=== PATIENT | female | born 1935 | race Caucasian/White ===

== ENCOUNTER 2024-02-07 08:00 | Emergency (ER) | payer OTHER, SELFPAY ==
[2024-02-07 08:03] VITALS: BP 171/82
[2024-02-07 08:33] VITALS: BMI 22.2
[2024-02-07 08:36] VITALS: BP 126/64
[2024-02-07 09:00] VITALS: BP 117/64
--- NOTE | 2024-02-07 09:32 | ED.GENMED ---
History of Present Illness
General
Chief Complaint: Cold/Flu/URI Symptoms
Source: patient and records
Time Seen by Provider: 02/07/24 09:17
Travel History
Have you had any contact with someone who has COVID-19?: No
Do you have any symptoms of coronavirus? Fever > 100 degrees, chills, cough, shortness of breath, sore throat, loss of taste or smell, muscle aches, or headache?: Yes
Symptoms:: congestion
History of Present Illness
History of Present Illness:
88-year-old female with past medical history of giant cell arteritis, Sjogren's syndrome/lupus-like syndrome presenting to the emergency department for evaluation at the request of her primary care provider after patient has been dealing with about
1-1/2 weeks of sinus pressure/headache, chills and generally feeling unwell. Patient did a home COVID/flu test which was negative so went to the primary care provider on Thursday who attempted an EKG and said that the EKG was different from the one
at her [facility] a month ago and recommended she go to the emergency. Patient decided to go home and see if symptoms would resolve but upon awakening today still had a mild headache so decided to come to the ER for the further testing. Patient
states that her primary care provider wanted lab work done. She notes that the [facility] wanted to get an echocardiogram done as an outpatient which patient has yet to schedule. Presently she is denying any chest pain, shortness of breath,
palpitations, diaphoresis, exertional dyspnea, orthopnea, cough, fevers or infectious symptoms or any other concerns. She did not take anything for her headache today as she did not want to potentially cause any problems with the workup here. She
is requesting a extra strength Tylenol however. Patient notes that she has had multiple imaging studies done for her frequent headaches with her last CAT scan being within the last 6 months or so.
Past History
Past History
ED Past Medical History: Arrthythmia (atrial fibrillation), Hypothyroidism, Other (giant cell arteritis, bilateral biopsy-proven July 2021, chronic hyponatremia, anemia, orthostatic hypotension) and Other (vitiligo, alopecia, irritable bowel
syndrome, plantar fasciitis, osteoporosis, labyrinthitis, secondary hyperparathyroidism, insomnia); Negative Renal failure (CKD stage IIIa)
ED Past Surgical History: Gynecological (hysterectomy 1986) and Other (bilateral temporal artery biopsy 2020)
Social History
Tobacco: Non-smoker
Alcohol: None
Drug: None
Personal:
Living: alone
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
Family History
Family History: Negative Diabetes or Hypertension
Review of Systems
Review of Systems
All Other Systems: ROS reviewed and negative except as documented in HPI and ROS
Phy Exam
Physical Exam
Physical Exam:
GENERAL: Alert , in no apparent distress
EYE: conjunctiva clear
NECK: Supple, no significant adenopathy.
ENT: o/p clr, mmm.
CARDIAC: Regular rate and rhythm, no murmur
LUNGS: Clear breath sounds bilaterally, no acute respiratory distress, no wheezes/rales/rhonchi
NEUROLOGICAL: Alert and oriented
SKIN: Warm and dry, skin intact.
MUSCULOSKELETAL: well perfused. no edema
PSYCH: Normal and appropriate interaction.
Scores
Heart Failure Risk
Heart Failure Risk Score: Not Applicable
Heart Score for Chest Pain Patients
STEMI patient?: Not applicable
Withdrawal Assessment of Alcohol
Withdrawal Assessment Completed?: Not applicable
Course
Orders/Labs/Results
Orders:
Orders
02/07/24
Electrocardiogram (*1) Stat
Reason for Study: Chest Pain
Comment: DONE NO ORDER ENTERED
02/07/24 09:35
Acetaminophen [Tylenol] 500 mg PO NOW STA
02/07/24 10:10
Complete Blood Count/With Diff Urgent
Comprehensive Metabolic Panel Urgent
Troponin I Urgent
Abnormal Lab Results
02/07/24
10:10
WBC 3.4 L 10^3/uL
(4.8-10.8)
RBC 3.31 L 10^6/uL
(4.20-5.40)
Hgb 11.4 L g/dL
(12.0-16.0)
Hct 31.6 L %
(37.0-47.0)
MCH 34.4 H pg
(27.0-31.0)
Absolute Lymphs (auto) 0.6 L 10^3/uL
(1.2-3.4)
Lymphocytes % 18.7 L %
(20.5-51.1)
Monocytes % 14.6 H %
(1.7-9.3)
Eosinophils % 6.4 H %
(0-6)
Sodium 130 L mmol/L
(135-145)
BUN 21 H mg/dl
(7-17)
02/07/24 10:10
02/07/24 10:10
Vital Signs
Initial and Last Documented VS:
Initial Vital Signs
Temp Pulse Resp BP Pulse Ox
97.6 F 99 20 171/82 98
02/07/24 08:03 02/07/24 08:03 02/07/24 08:03 02/07/24 08:03 02/07/24 08:03
Last Documented Vital Signs
Temp Pulse Resp BP Pulse Ox
97.6 F 65 15 109/94 98
02/07/24 08:03 02/07/24 10:45 02/07/24 10:45 02/07/24 10:00 02/07/24 09:45
MDM/Problems Addressed
Differential Diagnosis Includes:
Viral syndrome, sinusitis, exacerbation of patient's known chronic headaches/lupus-like syndrome, given bilateral nature of symptoms I have less suspicion for giant cell arteritis, atypical ACS presentation
MDM/Problems Addressed:
88-year-old female presenting the emergency department quest of primary care provider for lab work given reported abnormal EKG done in office. Patient does not report any ACS like symptoms. She has undergone extensive outpatient workup with
multiple different specialist for various symptoms with no specific etiology was found. Has a questionable diagnosis of Sjogren syndrome. Patient states primary care wanted her to have blood work done. Will check basic labs and troponin. Tylenol
500 mg p.o. ordered for patient's mild headache. As long as workup is unremarkable anticipate discharge home with continued outpatient follow-up.
Chronic conditions affecting care: Other (Sjogren syndrome)
*Pulse Oximetry
Patient hypoxic: no
*EKG
Interpreted by ED Provider?: Yes
Comparison EKG: no changes
Heart Rate: 87
Rate: normal
Rhythm: sinus
Ischemia: non-specific ST changes
*Critical Care Note
Total Time (30-74mins, 75-104mins- exclusive of procedures): Not Applicable
Data Reviewed
Review of Other/Old Records Reveals: Labs, Records and Radiology Studies
Source: patient and records
Patient Management
Escalation/DeEscalation of care consider admission/obs:
Patient's labs are baseline and without any acute abnormalities. EKG is unchanged from previous. Stable for discharge home and continued outpatient follow-up.
ED Attending Note
-
Portions of this chart may have been created with voice recognition software.� Occasional wrong word or��sound alike� substitutions may have occurred due to the inherent limitations of voice recognition software.
Discharge Plan
Departure
Patient Disposition: Home (Routine Discharge)
Date of Disposition: 02/07/24
Time of Disposition: 10:53
Patient with high blood pressure during this ER visit?: Yes
Discharge Problem:
Headache
Instructions: Headache, Adult (DC)
Prescriptions:
No Action
levothyroxine [Synthroid] 100 MCG tablet
100 mcg PO DAILY
Eliquis 2.5 mg Tablet
2.5 mg PO BID Qty: 60 0RF
Vitamin C 100 mg Tablet
100 mg PO DAILY
sodium chloride 1 gram tablet
1,000 mg PO BID Qty: 60 0RF
lorazepam 0.5 mg tablet
0.25 mg PO HS
calcium carbonate-vitamin D3 600 mg-10 mcg (400 unit) Capsule
PO DAILY
famotidine [Pepcid] 20 mg Tablet
20 mg PO DAILY
Referrals:
Mirtha Riley MD [Family Provider] -
Interventions
Interventions:
*Risk Screen - Suicide Last Done: 02/07/24 08:33
*General Assessment Last Done: 02/07/24 08:33
*Neglect/Abuse Screening Last Done: 02/07/24 08:33
ED- Fall Risk Assessment Last Done: 02/07/24 08:33
*ED COVID-19 Vaccine History Last Done: 02/07/24 08:33
*Nursing Disposition Last Done: 02/07/24 11:13
ED- Pulmonary Assessment Last Done: 02/07/24 08:33
Discharge Date and Time
Discharge Date/Time: 02/07/24 11:13
[2024-02-07] MEDS: TYLENOL 500 MG PO (09:58)
[2024-02-07 10:00] VITALS: BP 109/94
[2024-02-07 10:16] LABS: % Basophils 1.2 % (0-2); % Eosinophils 6.4 % (0-6); % Lymphocytes 18.7 % (20.5-51.1); % Monocytes 14.6 % (1.7-9.3); % Neutrophils 59.1 % (42.2-75.2); Absolute Eosinophils 0.2 10^3/uL (0-0.7); Absolute Lymphocytes 0.6 10^3/uL (1.2-3.4); Absolute Monocytes 0.5 10^3/uL (0.1-0.6); Hematocrit 31.6 % (37.0-47.0); Hemoglobin 11.4 g/dL (12.0-16.0); Mean Corp Hgb Conc. 36.1 g/dL (33.0-37.0); Mean Corpuscular Hgb 34.4 pg (27.0-31.0); Mean Corpuscular Volume 95.5 fL (81.0-99.0); Mean Platelet Volume 8.6 fL (7.4-10.4); Nucleated Red Blood Cells % 0 %; Platelet Count 185 10^3/uL (130-400); Red Blood Cell Count 3.31 10^6/uL (4.20-5.40); Red Cell Dist. Width 12.2 % (11.5-14.5); White Blood Cell Count 3.4 10^3/uL (4.8-10.8)
[2024-02-07 10:43] LABS: Troponin I < 0.012 ng/ml
[2024-02-07 10:48] LABS: ALT (SGPT) 22 U/L (0-35); AST (SGOT) 33 U/L (14-36); Albumin 4.3 g/dl (3.5-5.0); Alkaline Phosphatase 74 U/L (38-126); Blood Urea Nitrogen 21 mg/dl (7-17); Carbon Dioxide 22 mmol/L (22-30); Chloride 101 mmol/L (98-107); Estimated Creatinine Clearance 35 ml/min; Glucose 70 mg/dl (70-99); Potassium 4.1 mmol/L (3.5-5.1); Sodium 130 mmol/L (135-145); Total Bilirubin 0.5 mg/dl (0.2-1.3); Total Protein 6.9 g/dl (6.3-8.2); eGFR > 60.00
== END 2024-02-07 11:13 | disposition home or self-care (01) ==
LOC: EMR 08:00
PROVIDERS: Physician Assistant Medical; EMERGENCY PHYSICIAN Emergency Medicine; FAMILY PHYSICIAN Emergency Medicine
DX: R51.9 Headache, unspecified (principal); R68.83 Chills (without fever); R03.0 Elevated blood-pressure reading, without diagnosis of hypertension; M35.00 Sjogren syndrome, unspecified
CPT/HCPCS: 99284; 80053; 84484; 85025; 93005

== ENCOUNTER → 2024-03-11 11:57 | Outpatient (REF) | payer OTHER, SELFPAY | LOC: RAD 11:57 | PROVIDERS: ATTENDING PHYSICIAN Internal Medicine; FAMILY PHYSICIAN Emergency Medicine | DX: R06.09 Other forms of dyspnea (principal) | CPT/HCPCS: 71250 ==

== ENCOUNTER → 2024-03-17 13:46 | Outpatient (REF) | payer OTHER, SELFPAY | LOC: RCS 13:46 | PROVIDERS: ATTENDING PHYSICIAN Physician Assistant Medical; FAMILY PHYSICIAN Emergency Medicine | DX: R06.02 Shortness of breath (principal) | CPT/HCPCS: 93306 ==

== ENCOUNTER → 2024-03-24 08:02 | Outpatient (REF) | payer OTHER, SELFPAY | LOC: DHCBC/DCA 08:02 | PROVIDERS: ATTENDING PHYSICIAN Internal Medicine Cardiovascular Disease; FAMILY PHYSICIAN Emergency Medicine | DX: R06.02 Shortness of breath (principal); R94.39 Abnormal result of other cardiovascular function study | CPT/HCPCS: 78452; 93017; A9500; J2785 ==

== ENCOUNTER 2024-07-02 07:43 | Emergency (ER) | payer OTHER, SELFPAY ==
[2024-07-02 07:45] VITALS: BP 135/87
[2024-07-02 08:00] VITALS: BP 132/74
[2024-07-02 08:54] LABS: % Basophils 0.8 % (0-2); % Eosinophils 3.1 % (0-6); % Immature Granulocytes 0.5 % (0-0.5); % Lymphocytes 22.6 % (20.5-51.1); % Monocytes 18.2 % (1.7-9.3); % Neutrophils 54.8 % (42.2-75.2); Absolute Eosinophils 0.1 10^3/uL (0-0.7); Absolute Lymphocytes 0.9 10^3/uL (1.2-3.4); Absolute Monocytes 0.7 10^3/uL (0.1-0.6); Absolute Neutrophils 2.1 10^3/uL (1.4-6.5); Hematocrit 32.5 % (37.0-47.0); Hemoglobin 11.8 g/dL (12.0-16.0); Mean Corp Hgb Conc. 36.3 g/dL (33.0-37.0); Mean Corpuscular Hgb 35.4 pg (27.0-31.0); Mean Corpuscular Volume 97.6 fL (81.0-99.0); Mean Platelet Volume 8.6 fL (7.4-10.4); Nucleated Red Blood Cells % 0 %; Platelet Count 190 10^3/uL (130-400); Red Blood Cell Count 3.33 10^6/uL (4.20-5.40); Red Cell Dist. Width 12.8 % (11.5-14.5); White Blood Cell Count 3.9 10^3/uL (4.8-10.8)
[2024-07-02 09:10] LABS: ALT (SGPT) 17 U/L (0-35); AST (SGOT) 25 U/L (14-36); Albumin 4.3 g/dl (3.5-5.0); Alkaline Phosphatase 42 U/L (38-126); Blood Urea Nitrogen 20 mg/dl (7-17); Calcium 10.1 mg/dl (8.4-10.2); Carbon Dioxide 22 mmol/L (22-30); Chloride 97 mmol/L (98-107); Glucose 87 mg/dl (70-99); Potassium 3.6 mmol/L (3.5-5.1); Sodium 129 mmol/L (135-145); Total Bilirubin 0.5 mg/dl (0.2-1.3); Total Protein 6.5 g/dl (6.3-8.2); eGFR 54.53
[2024-07-02 09:13] LABS: C-Reactive Protein < 5.00 mg/L (0.0-10.00)
--- NOTE | 2024-07-02 09:14 | ED.GENMED ---
History of Present Illness
General
Chief Complaint: Headache
Source: patient and records
Time Seen by Provider: 07/02/24 08:01
History of Present Illness
History of Present Illness:
89-year-old female with past medical history of chronic headache, atrial fibrillation, lupus-like syndrome/Sjogren's syndrome presenting to the ER after she saw her video camera operator yesterday who wanted her to come to the ER yesterday for workup of
potential giant cell arteritis after patient has been noting persistent lightheadedness, headache, fatigue and some right-sided jaw pain that has been ongoing for a few months to over a year. Patient has a history of giant cell arteritis in the
past and has been on long-term corticosteroids which likely caused her adrenal insufficiency (currently not on steroids) and states that due to her continued symptoms that is why she went to the video camera operator yesterday. Patient states her
symptoms are not really any different than her normal today. She denies any fevers or infectious symptoms, trauma, blurred or double vision or any other concerns. Patient has been seen in this ER before for similar related incidences
Past History
Past History
ED Past Medical History: Arrthythmia (atrial fibrillation), Hypothyroidism, Other (giant cell arteritis, bilateral biopsy-proven July 2021, chronic hyponatremia, anemia, orthostatic hypotension) and Other (vitiligo, alopecia, irritable bowel
syndrome, plantar fasciitis, osteoporosis, labyrinthitis, secondary hyperparathyroidism, insomnia); Negative Renal failure (CKD stage IIIa)
ED Past Surgical History: Gynecological (hysterectomy 1986) and Other (bilateral temporal artery biopsy 2020)
Social History
Tobacco: Non-smoker
Alcohol: None
Drug: None
Personal:
Living: alone
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
Family History
Family History: Negative Diabetes or Hypertension
Review of Systems
Review of Systems
All Other Systems: ROS reviewed and negative except as documented in HPI and ROS
Phy Exam
Physical Exam
Physical Exam:
GENERAL: Alert , in no apparent distress
EYE: pupils equal and reactive, 3 mm bilateral, EOMI
NECK: Supple, no meningismus
ENT: o/p clr, mmm.
CARDIAC: Regular rate and rhythm .
LUNGS: Clear breath sounds bilaterally, no acute respiratory distress, no wheezes/rales/rhonchi
NEUROLOGICAL: Alert and oriented, no focal neuro deficits, ambulates with steady gait, no ataxia, no dysmetria
SKIN: Warm and dry, skin intact.
MUSCULOSKELETAL: well perfused.
PSYCH: Normal and appropriate interaction.
Scores
Heart Failure Risk
Heart Failure Risk Score: Not Applicable
Heart Score for Chest Pain Patients
STEMI patient?: Not applicable
Withdrawal Assessment of Alcohol
Withdrawal Assessment Completed?: Not applicable
Course
Orders/Labs/Results
Orders:
Orders
07/02/24 08:29
CRP [C-Reactive Protein] Urgent
Complete Blood Count/With Diff Urgent
Comprehensive Metabolic Panel Urgent
ESR [Erythrocyte Sed Rate] Urgent
Abnormal Lab Results
07/02/24
08:29
WBC 3.9 L 10^3/uL
(4.8-10.8)
RBC 3.33 L 10^6/uL
(4.20-5.40)
Hgb 11.8 L g/dL
(12.0-16.0)
Hct 32.5 L %
(37.0-47.0)
MCH 35.4 H pg
(27.0-31.0)
Absolute Lymphs (auto) 0.9 L 10^3/uL
(1.2-3.4)
Absolute Monos (auto) 0.7 H 10^3/uL
(0.1-0.6)
Monocytes % 18.2 H %
(1.7-9.3)
Sodium 129 L mmol/L
(135-145)
Chloride 97 L mmol/L
(98-107)
BUN 20 H mg/dl
(7-17)
07/02/24 08:29
07/02/24 08:29
Vital Signs
Initial and Last Documented VS:
Initial Vital Signs
Temp Pulse Resp BP Pulse Ox
97.8 F 108 16 135/87 100
07/02/24 07:45 07/02/24 07:45 07/02/24 07:45 07/02/24 07:45 07/02/24 07:45
Last Documented Vital Signs
Temp Pulse Resp BP Pulse Ox
98.4 F 90 18 138/76 98
07/02/24 09:50 07/02/24 09:50 07/02/24 09:50 07/02/24 09:50 07/02/24 09:50
MDM/Problems Addressed
Differential Diagnosis Includes:
Tension headache, migraine headache, giant cell arteritis considered however thought to be less likely given duration of symptoms and chronicity of symptoms, hyponatremia given patient's history
MDM/Problems Addressed:
89-year-old female presenting the emergency department for evaluation at request of her video camera operator for evaluation of possible giant cell arteritis. Patient does have a history of giant cell arteritis in 2020 status post biopsy. Patient was
unsure as to which side she had the giant cell arteritis on or a biopsy performed on. She notes no new symptoms over the last few weeks or months so it makes this diagnosis a little less likely given I would suspect some form of visual disturbance
associated if this were truly giant cell arteritis and the duration of time patient has had the symptoms. Will check labs and following results will discuss with vascular surgery. Disposition pending.
Chronic conditions affecting care: Neurological disorder (chronic headache) and Other (lupus like syndrome)
*Pulse Oximetry
Patient hypoxic: no
*Critical Care Note
Total Time (30-74mins, 75-104mins- exclusive of procedures): Not Applicable
Data Reviewed
Review of Other/Old Records Reveals: Records and Operative Reports
Source: patient and records
Patient Management
Escalation/DeEscalation of care consider admission/obs:
Patient's inflammatory markers are unremarkable making the likelihood of giant cell arteritis very unlikely. I gave the patient information for vascular surgery and advised she can contact them on Thursday for a follow-up visit. She also notes she
has a neurology visit coming up within the next few weeks. Patient is aware of return precautions to the ER but otherwise stable for discharge home.
ED Attending Note
-
Portions of this chart may have been created with voice recognition software.� Occasional wrong word or��sound alike� substitutions may have occurred due to the inherent limitations of voice recognition software.
Discharge Plan
Departure
Patient Disposition: Home (Routine Discharge)
Date of Disposition: 07/02/24
Time of Disposition: 09:27
Patient with high blood pressure during this ER visit?: No
Discharge Problem:
Headache
Instructions: Headache, Adult (DC)
Prescriptions:
No Action
levothyroxine [Synthroid] 100 MCG tablet
100 mcg PO DAILY
Eliquis 2.5 mg Tablet
2.5 mg PO BID Qty: 60 0RF
Vitamin C 100 mg Tablet
100 mg PO DAILY
sodium chloride 1 gram tablet
1,000 mg PO BID Qty: 60 0RF
lorazepam 0.5 mg tablet
0.25 mg PO HS
calcium carbonate-vitamin D3 600 mg-10 mcg (400 unit) Capsule
PO DAILY
famotidine [Pepcid] 20 mg Tablet
20 mg PO DAILY
Referrals:
Mirtha Riley MD [Family Provider] -
Forest Daniel III, MD [Active] - (Vascular Surgery)
Interventions
Interventions:
*Risk Screen - Suicide Last Done: 07/02/24 07:45
*General Assessment Last Done: 07/02/24 07:45
*Neglect/Abuse Screening Last Done: 07/02/24 07:45
ED- Fall Risk Assessment Last Done: 07/02/24 08:00
*Nursing Disposition Last Done: 07/02/24 09:50
ED- Neurological Assessment Last Done: 07/02/24 08:00
Discharge Date and Time
Discharge Date/Time: 07/02/24 09:49
Print Language: SAMMARINESE
[2024-07-02 09:23] LABS: Erythrocyte Sed Rate 11 mm/hour (0-20)
[2024-07-02 09:50] VITALS: BP 138/76
== END 2024-07-02 09:49 | disposition home or self-care (01) ==
LOC: EMR 07:43
PROVIDERS: Physician Assistant Medical; EMERGENCY PHYSICIAN Emergency Medicine; FAMILY PHYSICIAN Emergency Medicine
DX: R51.9 Headache, unspecified (principal); I48.91 Unspecified atrial fibrillation; M35.00 Sjogren syndrome, unspecified; M31.6 Other giant cell arteritis; K58.9 Irritable bowel syndrome, unspecified; E03.9 Hypothyroidism, unspecified; E27.40 Unspecified adrenocortical insufficiency; M81.0 Age-related osteoporosis without current pathological fracture; N25.81 Secondary hyperparathyroidism of renal origin; Z90.710 Acquired absence of both cervix and uterus
CPT/HCPCS: 99283; 80053; 85025; 85652; 86140

== ENCOUNTER → 2024-09-21 12:28 | Outpatient (REF) | payer OTHER, SELFPAY ==
[2024-09-21 13:00] LABS: % Basophils 0.2 % (0-2); % Eosinophils 0.4 % (0-6); % Immature Granulocytes 0.2 % (0-0.5); % Lymphocytes 13.6 % (20.5-51.1); % Monocytes 4.2 % (1.7-9.3); % Neutrophils 81.4 % (42.2-75.2); Absolute Lymphocytes 0.6 10^3/uL (1.2-3.4); Absolute Monocytes 0.2 10^3/uL (0.1-0.6); Absolute Neutrophils 3.6 10^3/uL (1.4-6.5); Hematocrit 33.9 % (37.0-47.0); Hemoglobin 11.7 g/dL (12.0-16.0); Mean Corp Hgb Conc. 34.5 g/dL (33.0-37.0); Mean Corpuscular Hgb 35.2 pg (27.0-31.0); Mean Corpuscular Volume 102.1 fL (81.0-99.0); Mean Platelet Volume 8.5 fL (7.4-10.4); Platelet Count 223 10^3/uL (130-400); Red Blood Cell Count 3.32 10^6/uL (4.20-5.40); Red Cell Dist. Width 12.6 % (11.5-14.5); White Blood Cell Count 4.5 10^3/uL (4.8-10.8)
[2024-09-21 13:47] LABS: Nucleated Red Blood Cells % 0 %; Reticulocyte Count 1.8 % (0.4-2.8)
[2024-09-21 13:59] LABS: Erythrocyte Sed Rate 18 mm/hour (0-20)
[2024-09-21 14:11] LABS: ALT (SGPT) 23 U/L (0-35); AST (SGOT) 26 U/L (14-36); Albumin 4.4 g/dl (3.5-5.0); Alkaline Phosphatase 42 U/L (38-126); Blood Urea Nitrogen 28 mg/dl (7-17); Carbon Dioxide 21 mmol/L (22-30); Chloride 104 mmol/L (98-107); Glucose 108 mg/dl (70-99); Iron 83 ug/dl (37-170); LDH 185 U/L (120-246); Potassium 4.6 mmol/L (3.5-5.1); Sodium 137 mmol/L (135-145); Total Bilirubin 0.2 mg/dl (0.2-1.3); Total Protein 6.6 g/dl (6.3-8.2); Uric Acid 5.3 mg/dl (2.5-6.2); eGFR 54.53
[2024-09-21 14:22] LABS: Percent Saturation 27 % (20-50); Total Iron Binding Capacity 300 ug/dl (265-497)
[2024-09-21 15:16] LABS: Folate 14.1 ng/ml (2.76-20); Vitamin B12 807 pg/ml (239-931)
[2024-09-25 23:39] LABS: Albumin 4.06 g/dL (3.75-5.01); Alpha 1 Globulin 0.29 g/dL (0.19-0.46); Alpha 2 Globulin 0.67 g/dL (0.48-1.05); Free Kappa Light Chains,Quant 26.27 mg/L (3.30-19.40); Free Lambda Light Chains,Quant 16.75 mg/L (5.71-26.30); IgA <2 mg/dL (68-408); IgG 663 mg/dL (768-1632); IgM 279 mg/dL (35-263); Immunofixation Electrophoresis IFE Done; Kappa/Lambda Fr Light Ratio 1.57 (0.26-1.65); Total Protein-Electrophoresis 6.4 g/dL (6.3-8.2)
== END ==
LOC: OIDL 12:28
PROVIDERS: ATTENDING PHYSICIAN Internal Medicine Hematology & Oncology
DX: D50.9 Iron deficiency anemia, unspecified (principal); D72.819 Decreased white blood cell count, unspecified; R50.9 Fever, unspecified
CPT/HCPCS: 36415; 80053; 82607; 82728; 82746; 82784; 83521; 83540; 83550; 83615; 84155; 84165; 84550; 85025; 85045; 85652; 86334

== ENCOUNTER 2024-10-14 12:13 | Outpatient (RCR) | payer OTHER, SELFPAY ==
[2024-10-14 12:33] LABS: % Basophils 0.4 % (0-2); % Eosinophils 0.9 % (0-6); % Immature Granulocytes 0.4 % (0-0.5); % Lymphocytes 7.1 % (20.5-51.1); % Monocytes 7.9 % (1.7-9.3); % Neutrophils 83.3 % (42.2-75.2); Absolute Eosinophils 0.1 10^3/uL (0-0.7); Absolute Lymphocytes 0.7 10^3/uL (1.2-3.4); Absolute Monocytes 0.8 10^3/uL (0.1-0.6); Absolute Neutrophils 8.1 10^3/uL (1.4-6.5); Hematocrit 36.5 % (37.0-47.0); Hemoglobin 11.8 g/dL (12.0-16.0); Mean Corp Hgb Conc. 32.3 g/dL (33.0-37.0); Mean Corpuscular Hgb 34.9 pg (27.0-31.0); Nucleated Red Blood Cells % 0 %; Platelet Count 221 10^3/uL (130-400); Red Blood Cell Count 3.38 10^6/uL (4.20-5.40); Red Cell Dist. Width 12.7 % (11.5-14.5); White Blood Cell Count 9.7 10^3/uL (4.8-10.8)
[2024-10-16 15:08] LABS: EBV-EA (D) Ab IgG 5.6 U/mL (0.0-10.9); EBV-NA IgG 24.7 U/mL (0.0-21.9); EBV-VCA IgM Antibodies 30.7 U/mL (0.0-43.9)
[2024-10-16 17:05] LABS: ANA, IgG Reflex to HEp-2 None Detected (None Detected)
[2024-10-17 01:56] LABS: SSA 52 (Ro)(ENA) Ab, IgG 122 AU/mL (0-40); SSA 60 (Ro)(ENA) Ab, IgG 0 AU/mL (0-40); SSB (La)(ENA) Ab, IgG 0 AU/mL (0-40)
== END 2024-10-15 23:59 | disposition home or self-care (01) ==
LOC: OID 12:13
PROVIDERS: ATTENDING PHYSICIAN Internal Medicine Hematology & Oncology
DX: D50.9 Iron deficiency anemia, unspecified (principal); D72.819 Decreased white blood cell count, unspecified; R50.9 Fever, unspecified
CPT/HCPCS: 85025; 86038; 86235; 86663; 86664; 86665

== ENCOUNTER → 2024-11-17 07:52 | Outpatient (REF) | payer OTHER, SELFPAY | LOC: RAD 07:52 | PROVIDERS: ATTENDING PHYSICIAN Internal Medicine Endocrinology, Diabetes & Metabolism; FAMILY PHYSICIAN Emergency Medicine | DX: Z78.0 Asymptomatic menopausal state (principal) | CPT/HCPCS: 77080 ==

== ENCOUNTER → 2025-01-03 08:16 | Outpatient (REF) | payer OTHER, SELFPAY | LOC: RAD 08:16 | PROVIDERS: ATTENDING PHYSICIAN Internal Medicine; PRIMARYCARE PHYSICIAN Emergency Medicine | DX: R74.01 Elevation of levels of liver transaminase levels (principal) | CPT/HCPCS: 76700 ==

== ENCOUNTER 2025-01-10 14:53 | Outpatient (RCR) | payer OTHER, SELFPAY | END 2025-01-10 23:59 | disposition home or self-care (01) | LOC: RPT 14:53 | PROVIDERS: ATTENDING PHYSICIAN Emergency Medicine | DX: R53.81 Other malaise (principal); Z73.6 Limitation of activities due to disability | CPT/HCPCS: 97010; 97110; 97162; 97530 ==

== ENCOUNTER → 2025-01-16 15:49 | Outpatient (REF) | payer OTHER, SELFPAY | LOC: RAD 15:49 | PROVIDERS: ATTENDING PHYSICIAN Physician Assistant Medical; FAMILY PHYSICIAN Emergency Medicine | DX: R06.02 Shortness of breath (principal) | CPT/HCPCS: 71046 ==

== ENCOUNTER 2025-01-26 14:56 | Outpatient (RCR) | payer OTHER, SELFPAY | END 2025-01-26 23:59 | disposition home or self-care (01) | LOC: RPT 14:56 | PROVIDERS: ATTENDING PHYSICIAN Emergency Medicine | DX: R53.81 Other malaise (principal); Z73.6 Limitation of activities due to disability | CPT/HCPCS: 97110 ==

== ENCOUNTER → 2025-02-21 11:57 | Outpatient (REF) | payer OTHER, SELFPAY ==
[2025-02-21 12:50] LABS: Urine Albumin 1+ (Neg - Trace); Urine Bilirubin Negative (Negative); Urine Character Clear (Clear); Urine Color Yellow; Urine Glucose Negative (Negative); Urine Ketone Negative (Negative); Urine Leukocyte Negative (Negative); Urine Nitrite Negative (Negative); Urine Occult Blood Negative (Negative); Urine Urobilinogen Negative (Neg - 1+); Urine pH 6.5 (5.0-9.0)
[2025-02-21 12:51] LABS: Urine Red Blood Cell 0-2 /HPF (0-2); Urine Squamous Cell 0-2 /LPF (Few); Urine White Cell 0-2 /HPF (0-5)
[2025-02-21 12:52] LABS: % Basophils 0.3 % (0-2); % Eosinophils 0.2 % (0-6); % Immature Granulocytes 0.3 % (0-0.5); % Lymphocytes 9.2 % (20.5-51.1); % Monocytes 1.8 % (1.7-9.3); % Neutrophils 88.2 % (42.2-75.2); Absolute Lymphocytes 0.6 10^3/uL (1.2-3.4); Absolute Monocytes 0.1 10^3/uL (0.1-0.6); Absolute Neutrophils 5.8 10^3/uL (1.4-6.5); Hematocrit 37.2 % (37.0-47.0); Hemoglobin 12.5 g/dL (12.0-16.0); Mean Corp Hgb Conc. 33.6 g/dL (33.0-37.0); Mean Corpuscular Hgb 34.2 pg (27.0-31.0); Mean Corpuscular Volume 101.9 fL (81.0-99.0); Mean Platelet Volume 9.2 fL (7.4-10.4); Nucleated Red Blood Cells % 0 %; Platelet Count 225 10^3/uL (130-400); Red Blood Cell Count 3.65 10^6/uL (4.20-5.40); Red Cell Dist. Width 12.3 % (11.5-14.5); White Blood Cell Count 6.6 10^3/uL (4.8-10.8)
[2025-02-21 13:09] LABS: ALT (SGPT) 24 U/L (0-35); AST (SGOT) 25 U/L (14-36); Albumin 4.3 g/dl (3.5-5.0); Alkaline Phosphatase 54 U/L (38-126); Blood Urea Nitrogen 31 mg/dl (7-17); Calcium 10.2 mg/dl (8.4-10.2); Carbon Dioxide 25 mmol/L (22-30); Chloride 103 mmol/L (98-107); Glucose 175 mg/dl (70-99); Potassium 4.6 mmol/L (3.5-5.1); Sodium 136 mmol/L (135-145); Total Bilirubin 0.4 mg/dl (0.2-1.3); Total Protein 6.9 g/dl (6.3-8.2); eGFR 54.53
[2025-02-21 13:13] LABS: C-Reactive Protein < 5.00 mg/L (0.0-10.00)
[2025-02-21 13:34] LABS: Erythrocyte Sed Rate 6 mm/hour (0-20)
[2025-02-21 14:07] LABS: Protein/creatinine Ratio 0.4; Urine Protein 17 mg/dl
[2025-02-22 23:16] LABS: Complement C3 91 mg/dl (88-165)
[2025-02-23 16:17] LABS: ds-DNA Ab, IgG Reflex To Titer 13 IU (0-24)
== END ==
LOC: REG 11:57
PROVIDERS: ATTENDING PHYSICIAN Internal Medicine; FAMILY PHYSICIAN Emergency Medicine
DX: T50.905A Adverse effect of unspecified drugs, medicaments and biological substances, initial encounter (principal); Z79.899 Other long term (current) drug therapy; M35.9 Systemic involvement of connective tissue, unspecified; M06.4 Inflammatory polyarthropathy; M32.9 Systemic lupus erythematosus, unspecified; Z51.81 Encounter for therapeutic drug level monitoring; L93.2 Other local lupus erythematosus
CPT/HCPCS: 36415; 80053; 81003; 81015; 82570; 84156; 85025; 85652; 86140; 86160; 86225; 86332

== ENCOUNTER 2025-04-13 14:01 | Outpatient (RCR) | payer OTHER, SELFPAY | END 2025-04-13 23:59 | disposition home or self-care (01) | LOC: RPT 14:01 | PROVIDERS: ATTENDING PHYSICIAN Emergency Medicine | DX: R53.81 Other malaise (principal); Z73.6 Limitation of activities due to disability | CPT/HCPCS: 97110; 97112; 97530 ==

== ENCOUNTER → 2025-05-10 15:54 | Outpatient (REF) | payer OTHER, SELFPAY | LOC: RAD 15:54 | PROVIDERS: ATTENDING PHYSICIAN Internal Medicine Critical Care Medicine; FAMILY PHYSICIAN Emergency Medicine | DX: J98.4 Other disorders of lung (principal) | CPT/HCPCS: 71250 ==

== ENCOUNTER 2025-05-11 12:57 | Outpatient (RCR) | payer OTHER, SELFPAY | END 2025-05-11 23:59 | disposition home or self-care (01) | LOC: RPT 12:57 | PROVIDERS: ATTENDING PHYSICIAN Emergency Medicine | DX: R53.81 Other malaise (principal); Z73.6 Limitation of activities due to disability | CPT/HCPCS: 97110; 97530 ==

== ENCOUNTER 2025-06-09 12:44 | Inpatient (IN) | payer OTHER, SELFPAY ==
[2025-06-09] VITALS (10 sets, daily range): BP systolic 98–140; BP diastolic 49–106; BMI 22.2; BMI 22.4
--- NOTE | 2025-06-09 08:20 | ED.GENMED ---
History of Present Illness
<Damien Kimbrough MD, Resident - Last Filed: 06/09/25 11:24>
General
Chief Complaint: Abdominal Symptoms
Source: patient
Exam Limitations: none
Time Seen by Provider: 06/09/25 08:04
Nursing documentation reviewed up to this point in time: agreed with
History of Present Illness
History of Present Illness:
This is a 89-year-old female with history of migraines, A-fib, history of hiatal hernia, hypothyroidism, Sjogren syndrome, adrenal insufficiency presenting in the emergency department with complaints of abdominal discomfort with some nausea. She
reports that her last bowel movement was 2 weeks ago when she became constipated and started to notice discomfort which is progressively getting worse and now she has nausea which prompted her to visit the emergency department. Denies any vomiting,
denies any fevers or chills, denies any chest pain, denies any trouble breathing. Reports that she believes she is unable to pass the gas as well.
Past History
<Damien Kimbrough MD, Resident - Last Filed: 06/09/25 11:24>
Past History
ED Past Medical History: Arrthythmia (atrial fibrillation), Hypothyroidism, Other (giant cell arteritis, bilateral biopsy-proven July 2021, chronic hyponatremia, anemia, orthostatic hypotension) and Other (vitiligo, alopecia, irritable bowel
syndrome, plantar fasciitis, osteoporosis, labyrinthitis, secondary hyperparathyroidism, insomnia); Negative Renal failure (CKD stage IIIa)
ED Past Surgical History: Gynecological (hysterectomy 1986) and Other (bilateral temporal artery biopsy 2020)
Social History
Tobacco: Non-smoker
Alcohol: None
Drug: None
Personal:
Living: alone
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
Family History
Family History: Negative Diabetes or Hypertension
Review of Systems
<Damien Kimbrough MD, Resident - Last Filed: 06/09/25 11:24>
Review of Systems
Allergies reviewed?: Yes
Constitutional: Denies fever or chills
EENT: Denies sore throat
Respiratory: Denies cough
Cardiac: Denies chest pain
ABD/GI: Reports abdominal pain, nausea and constipated; Denies vomiting or diarrhea
: Denies dysuria or frequency
Musculoskeletal: Denies joint pain
Skin: Denies itching
Neurological: Reports dizzy; Denies headache or numbness
Endocrine: Denies polyuria
Hematologic/Lymphatic: Denies bleeding
Psychiatric: Denies depression
Phy Exam
<Damien Kimbrough MD, Resident - Last Filed: 06/09/25 11:24>
General Physical Exam
General Presentation: no apparent distress
General age: appears stated age
General Skin: dry
General Habitus: elderly
General Mental: alert
General Hydration: dry mucous membranes
Cardiovascular Exam
Cardiovascular Exam: no murmur and tachycardia
Pulmonary Exam
Pulmonary Exam: lungs clear and no cough
Gastrointestinal Exam
Gastrointestinal Exam: non tender, soft, distended (Mildly), no abdominal hernia and no masses
Neurological Exam
Neurological Exam: alert and oriented x3
Musculoskeletal Exam
Musculoskeletal Exam: full ROM
Psychiatric Exam
Psychiatric Exam: normal mood/affect
Course
<Damien Kimbrough MD, Resident - Last Filed: 06/09/25 11:24>
Orders/Labs/Results
Orders:
Orders
06/09/25 07:52
Electrocardiogram (*1) Urgent
Reason for Study: Vertigo / Dizzy
EKG- Treatment ONCE
06/09/25 08:29
0.9% Sodium Chloride 1000 ml [Nss] 1,000 ml IV BOLUS
Ondansetron Injectable [Zofran] 4 mg IV NOW STA
06/09/25 08:30
CR Obstruct Series W/pa Chest Urgent
Comment:
Reason For Exam: Abdominal pain. Last BM 2 week ago
06/09/25 08:46
Complete Blood Count/With Diff Urgent
Comprehensive Metabolic Panel Urgent
Lipase Urgent
TSH Reflex To Free T4 Urgent
06/09/25 09:23
CT Abd/pelvis W Iv Cont Urgent
Comment:
Reason For Exam: Abdominal pain, abdominal series unconclusive
06/09/25 10:12
Osmolality, Random Urine Urgent
Date Specimen was Collected: 06/09/25
Time Specimen was Collected: 10:10
Urinalysis Reflex To Culture Urgent
Date Specimen was Collected: 06/09/25
Time Specimen was Collected: 10:10
Urine Microscopic Reflex Cult Urgent
Urine Sodium Urgent
Date Specimen was Collected: 06/09/25
Time Specimen was Collected: 10:10
06/09/25 10:21
Enema- Treatment ONCE
Type: Milk of Molasses
06/09/25 11:18
CR Chest Portable - 1 View Urgent
Comment:
Reason For Exam: sob
Reason Study Needs to be Portable: Unable to Transport
06/09/25 11:20
NT-proBNP Urgent
Troponin I Urgent
Abnormal Lab Results
06/09/25 06/09/25
08:46 10:12
RBC 3.43 L 10^6/uL
(4.20-5.40)
Hgb 11.9 L g/dL
(12.0-16.0)
Hct 33.1 L %
(37.0-47.0)
MCH 34.7 H pg
(27.0-31.0)
Abs Immat Gran (auto) 0.1 H 10^3/uL
(0-0.05)
Absolute Lymphs (auto) 0.6 L 10^3/uL
(1.2-3.4)
Absolute Monos (auto) 0.8 H 10^3/uL
(0.1-0.6)
Immature Gran % 1.4 H %
(0-0.5)
Lymphocytes % 11.5 L %
(20.5-51.1)
Monocytes % 16.6 H %
(1.7-9.3)
Sodium 123 L mmol/L
(135-145)
Chloride 95 L mmol/L
(98-107)
BUN 25 H mg/dl
(7-17)
Creatinine 1.1 H mg/dL
(0.6-1.0)
AST 58 H U/L
(14-36)
ALT 171 H U/L
(0-35)
Urine Bacteria (Reflex) Few A
(Negative)
Urine Sodium 119 H mmol/L
(30-90)
Urine Albumin (Reflex) 1+ A
(Neg - Trace)
06/09/25 08:46
06/09/25 08:46
Vital Signs
Initial and Last Documented VS:
Initial Vital Signs
Temp Pulse Resp BP Pulse Ox
98.5 F 117 16 138/61 95
06/09/25 07:53 06/09/25 07:53 06/09/25 07:53 06/09/25 07:53 06/09/25 07:53
Last Documented Vital Signs
Temp Pulse Resp BP Pulse Ox
98.5 F 117 16 129/59 95
06/09/25 07:53 06/09/25 07:53 06/09/25 07:53 06/09/25 09:27 06/09/25 08:24
<Baal Cuevas MD - Last Filed: 06/09/25 11:23>
Orders/Labs/Results
Orders:
Orders
06/09/25 07:52
Electrocardiogram (*1) Urgent
Reason for Study: Vertigo / Dizzy
EKG- Treatment ONCE
06/09/25 08:29
0.9% Sodium Chloride 1000 ml [Nss] 1,000 ml IV BOLUS
Ondansetron Injectable [Zofran] 4 mg IV NOW STA
06/09/25 08:30
CR Obstruct Series W/pa Chest Urgent
Comment:
Reason For Exam: Abdominal pain. Last BM 2 week ago
06/09/25 08:46
Complete Blood Count/With Diff Urgent
Comprehensive Metabolic Panel Urgent
Lipase Urgent
TSH Reflex To Free T4 Urgent
06/09/25 09:23
CT Abd/pelvis W Iv Cont Urgent
Comment:
Reason For Exam: Abdominal pain, abdominal series unconclusive
06/09/25 10:12
Osmolality, Random Urine Urgent
Date Specimen was Collected: 06/09/25
Time Specimen was Collected: 10:10
Urinalysis Reflex To Culture Urgent
Date Specimen was Collected: 06/09/25
Time Specimen was Collected: 10:10
Urine Microscopic Reflex Cult Urgent
Urine Sodium Urgent
Date Specimen was Collected: 06/09/25
Time Specimen was Collected: 10:10
06/09/25 10:21
Enema- Treatment ONCE
Type: Milk of Molasses
06/09/25 11:18
CR Chest Portable - 1 View Urgent
Comment:
Reason For Exam: sob
Reason Study Needs to be Portable: Unable to Transport
06/09/25 11:20
NT-proBNP Urgent
Troponin I Urgent
Abnormal Lab Results
06/09/25 06/09/25
08:46 10:12
RBC 3.43 L 10^6/uL
(4.20-5.40)
Hgb 11.9 L g/dL
(12.0-16.0)
Hct 33.1 L %
(37.0-47.0)
MCH 34.7 H pg
(27.0-31.0)
Abs Immat Gran (auto) 0.1 H 10^3/uL
(0-0.05)
Absolute Lymphs (auto) 0.6 L 10^3/uL
(1.2-3.4)
Absolute Monos (auto) 0.8 H 10^3/uL
(0.1-0.6)
Immature Gran % 1.4 H %
(0-0.5)
Lymphocytes % 11.5 L %
(20.5-51.1)
Monocytes % 16.6 H %
(1.7-9.3)
Sodium 123 L mmol/L
(135-145)
Chloride 95 L mmol/L
(98-107)
BUN 25 H mg/dl
(7-17)
Creatinine 1.1 H mg/dL
(0.6-1.0)
AST 58 H U/L
(14-36)
ALT 171 H U/L
(0-35)
Urine Bacteria (Reflex) Few A
(Negative)
Urine Sodium 119 H mmol/L
(30-90)
Urine Albumin (Reflex) 1+ A
(Neg - Trace)
06/09/25 08:46
06/09/25 08:46
Vital Signs
Initial and Last Documented VS:
Initial Vital Signs
Temp Pulse Resp BP Pulse Ox
98.5 F 117 16 138/61 95
06/09/25 07:53 06/09/25 07:53 06/09/25 07:53 06/09/25 07:53 06/09/25 07:53
Last Documented Vital Signs
Temp Pulse Resp BP Pulse Ox
98.5 F 117 16 129/59 95
06/09/25 07:53 06/09/25 07:53 06/09/25 07:53 06/09/25 09:27 06/09/25 08:24
<Damien Kimbrough MD, Resident - Last Filed: 06/09/25 11:24>
MDM/Problems Addressed
Differential Diagnosis Includes:
Stercoral colitis vs bowel obstruction vs diverticular vs less likely pancreatic vs unlikely biliary or renal colic
MDM/Problems Addressed:
Check CBC, CMP, lipase, UA, TSH
IV fluid 1 L normal saline
IV Zofran 4 mg 1 dose
Check abdominal obstruction series
update:
Abdominal obstruction series With Moderate amount of stool in the colon
will get CT abdomen with IV contrast To make sure that there is no obstruction
CBC with hemoglobin of 11.9 which is around her baseline other studies pending
update: Update CMP with sodium of 123, BUN of 25, creatinine 1.1, AST of 58, ALT 171
Serum lipase within normal limits
TSH pending
Pause fluid until patient/urine sample. Patient is s/p 100ml as of now
Check EKG, urine osmolality and urine sodium
update:
TSH within normal limits
Patient was able to submit the urine sample we will resume the fluids
Nurse reported that she feels the patient is short of breath. Patient reports that she does not have any trouble breathing and this is her normal to breathe a little faster when she walks. She follows with outpatient balance staff staker. Had workup in
the past and she does not have any pulmonary disease. She does not uses oxygen at home. Her oxygen saturation remained 95% at rest.
update: CT showed No acute findings within the abdomen or pelvis. Large amount stool within the sigmoid and descending colon. Scattered colonic diverticulosis.
Cholelithiasis.
EKG with sinus tachycardia.
Milk and molasses enema ordered
Patient reports dizziness, appears in mild distress which could definitely be related to hyponatremia. Will admit the patient for additional management.
Patient remains tachycardic and has some apparent shortness of breath on physical exam. Patient denies any trouble breathing and oxygen saturation stays around 95% on room air. Will get chest x-ray
EKG earlier had some ST changes will check troponin
Since he is on IV fluids even though she was very dry on physical exam we will check proBNP to make sure that she is not in HF
Chronic conditions affecting care: Arrhythmia
<Damien Kimbrough MD, Resident - Last Filed: 06/09/25 11:24>
*Pulse Oximetry
SaO2: 95
Oxygen Mode of Delivery: Room air
Patient hypoxic: no
*Critical Care Note
Total Time (30-74mins, 75-104mins- exclusive of procedures): Not Applicable
ED Attending Note
<Damien Kimbrough MD, Resident - Last Filed: 06/09/25 11:24>
-
Portions of this chart may have been created with voice recognition software.� Occasional wrong word or��sound alike� substitutions may have occurred due to the inherent limitations of voice recognition software.
<Bala Cuevas MD - Last Filed: 06/09/25 11:23>
ED Attending Note
Patient seen and examined by attending physician: Yes
I performed a history and physical exam of patient and discussed management with resident, I reviewed resident's note and agree with documented findings and plan of care.: Yes
ED Attending Note:
I have seen and evaluated the patient with a [id number] encounter. I have spoken to the resident and involved in the medical history, the physical exam, medical decision making.
Evaluation and management service: agree unless noted differently below.
Results interpretation: agree unless noted differently below.
Focused HPI: 89-year-old female with past medical history as noted presents to the ER for evaluation of abdominal pain. Patient reports onset of symptoms progressively over the past few weeks. She reports associated constipation�says that her last
bowel movement was 2 weeks ago; on further questioning she does admit that she last week passed 1 or 2 pellets of stool but nothing since. She says that she has not been passing gas for the past few days. She says she has had nausea but no
vomiting. Poor appetite. No fevers or chills. She reports feeling distended. Mild dizziness. She has tried taking Dulcolax without movement. She has prior history of hysterectomy.
Physical exam: Awake and alert not in distress. Tachycardic with otherwise normal vitals. Abdomen soft, mildly distended, mild diffuse tenderness.
Medical Decision Makin-year-old female presents to the ER for evaluation of abdominal pain associated with constipation as described above. Vitals and exam as above. Will check labs including thyroid studies, start with obstruction series.
Reassess after the above.
X-ray reviewed by me shows nonobstructive bowel gas pattern with significant stool burden in the descending colon and rectum; given her report of obstipation we will follow-up with CT to rule out low-grade obstruction.
CT shows constipation but no other acute abnormalities. Labs reviewed: CBC shows marginal stable anemia, moderate hyponatremia with sodium 123, mild BOUCHRA with creatinine of 1.1. Marginal transaminitis unclear acute clinical significance. Added
urine sodium and osmolality. Suspect hypovolemic we will provide fluids. Will give enema for constipation. She is complaining of continued dizziness�will admit for fluids, trend electrolytes, bowel regimen.
Patient noted to have some increasing shortness of breath that she was complaining of some mild shortness of breath initially. To abdominal distention from constipation. She has been tachycardic. No chest pain. EKG shows sinus tachycardia with
some likely rate related ST changes. Will check repeat chest x-ray. Add troponin and proBNP. She actually examines hypovolemic rather than volume overloaded and has been receiving some fluids. She is on Eliquis, lower suspicion that this is a
pulmonary embolism. Will continue to monitor. Patient admitted to the hospitalist.
Discharge Plan
Departure
Patient Disposition: Admit
Date of Disposition: 06/09/25
Time of Disposition: 11:12
Admit to: Telemetry
Presentation/result/management discussed w/ accepting MD/DO: Hospitalist
Patient with high blood pressure during this ER visit?: Yes
Condition: Fair
Discharge Problem:
Hyponatremia
Prescriptions:
No Action
levothyroxine [Synthroid] 100 MCG tablet
100 mcg PO DAILY
Eliquis 2.5 mg Tablet
2.5 mg PO BID Qty: 60 0RF
Vitamin C 100 mg Tablet
100 mg PO DAILY
sodium chloride 1 gram tablet
1,000 mg PO BID Qty: 60 0RF
lorazepam 0.5 mg tablet
0.25 mg PO HS
calcium carbonate-vitamin D3 600 mg-10 mcg (400 unit) Capsule
PO DAILY
famotidine [Pepcid] 20 mg Tablet
20 mg PO DAILY
naltrexone
Patient Comments:
per patient-unable to take opioids with this medication
Referrals:
Mirtha Riley MD [Family Provider, Internal Medicine]
Interventions
Interventions:
*Risk Screen - Suicide Last Done: 06/09/25 07:55
*General Assessment Last Done: 06/09/25 08:52
*Neglect/Abuse Screening Last Done: 06/09/25 07:55
*ED- Fall Risk Assessment Last Done: 06/09/25 09:47
*ED COVID-19 Vaccine History Last Done: 06/09/25 09:47
Discharge Date and Time
Print Language: PERSIAN
[2025-06-09] MEDS: ZOFRAN 4 MG IV (08:47)
[2025-06-09] MEDS: NSS 1000 IV ×3 (08:49→22:04)
[2025-06-09 09:04] LABS: Hematocrit 33.1 % (37.0-47.0); Hemoglobin 11.9 g/dL (12.0-16.0); Mean Corp Hgb Conc. 36.0 g/dL (33.0-37.0); Mean Corpuscular Volume 96.5 fL (81.0-99.0); Nucleated Red Blood Cells % 0 %; Platelet Count 146 10^3/uL (130-400); Red Cell Dist. Width 12.6 % (11.5-14.5)
[2025-06-09 09:31] LABS: ALT (SGPT) 171 U/L (0-35); AST (SGOT) 58 U/L (14-36); Albumin 4.1 g/dl (3.5-5.0); Alkaline Phosphatase 63 U/L (38-126); Blood Urea Nitrogen 25 mg/dl (7-17); Calcium 9.9 mg/dl (8.4-10.2); Carbon Dioxide 22 mmol/L (22-30); Chloride 95 mmol/L (98-107); Estimated Creatinine Clearance 28 ml/min; Glucose 96 mg/dl (70-99); Lipase 172 U/L (23-300); Potassium 3.8 mmol/L (3.5-5.1); Sodium 123 mmol/L (135-145); Total Protein 6.5 g/dl (6.3-8.2); eGFR 48.33
[2025-06-09 10:23] LABS: Urine Character Clear (Clear)
[2025-06-09 10:42] LABS: Urine Red Blood Cell 0-2 /HPF (0-2)
--- NOTE | 2025-06-09 11:32 | HPS.HSE ---
Family Physician
-
Family Physician: Mirtha Riley MD
Chief Complaint
-
abd discomfort, dyspepsia
History of Present Illness
HPI: 89-year-old female with history of migraines, A-fib, history of hiatal hernia, hypothyroidism, Sjogren syndrome, adrenal insufficiency; p/w abdominal discomfort and mild nausea.
She reported last bowel movement about 2 weeks ago. Her abdominal pain started with the constipation, and now also c/o nausea.
She denies to vomiting. She has chronic intermittent fever which she attributed to Sjogren's. She c/o bloating and dyspepsia.
Medical History
Past Medical History
Past Medical History: Reports Other
Additional Past Medical History:
atrial fibrillation,
Hypothyroidism,
giant cell arteritis, bilateral biopsy-proven July 2021,
chronic hyponatremia, now on salt tab
Past Surgical History: Reports Other (Gynecological (hysterectomy 1986) and Other (bilateral temporal artery biopsy 2020))
Social History
Tobacco: Non-smoker
Alcohol: None
Drug: None
Personal:
Family History
Family History: Not pertinent
Allergies / Home Medications
Allergies reflects when Allergies were last updated in [facility].
Home Medications with original date entered in [facility]
Allergy/Medication List:
Allergies
Allergy/AdvReac Type Severity Reaction Status Date / Time
aspirin (Aspirin) Allergy Severe Hives Verified 07/02/24 07:45
Home Medications
lorazepam 0.5 mg tablet 1 mg PO HSPRN PRN anxiety 03/30/23
calcium 600 mg (as carbonate)-vitamin D3 10 mcg (400 unit) capsule 1 cap PO BID Supplement 07/06/23
famotidine 20 mg tablet (Pepcid) 20 mg PO DAILY 09/01/23
naltrexone as needed as per patient 05/10/25
acetaminophen 500 mg tablet 500 mg PO DAILY 06/09/25
ascorbic acid (vitamin C) 500 mg tablet (Vitamin C) 500 mg PO DAILY 06/09/25
cyanocobalamin (vitamin B-12) 1,000 mcg tablet 1,000 mcg PO DAILY 06/09/25
levothyroxine 88 mcg tablet (Synthroid) 88 mcg PO DAILY 06/09/25
metoprolol succinate 25 mg tablet,extended release 24 hr (Toprol XL) 25 mg PO DAILY 06/09/25
prednisone 1 mg tablet 9 mg PO DAILY 06/09/25
rivaroxaban 15 mg tablet (Xarelto) 15 mg PO QPM 06/09/25
sodium chloride 1 gram tablet 1,000 mg PO TID 06/09/25
vitamin K2 40 mcg tablet 40 mcg PO DAILY 06/09/25
Review of Systems
-
Abdomen/GI: Reports See HPI, Abdominal Pain, Nausea and Constipated; Denies Vomiting
Physical Exam
Vital Signs
Vital Signs
Temp Pulse Resp BP Pulse Ox
36.9 C 117 16 129/59 95
06/09/25 07:53 06/09/25 07:53 06/09/25 07:53 06/09/25 09:27 06/09/25 08:24
Physical Exam
General: Well Developed, Well Nourished, No Apparent Distress, Comfortable, Conversant and Other (cushingoid appearance )
HEENT: NormoCephalic, Moist mucous membranes and Atraumatic
Respiratory: Clear and Non Labored Respirations; No Accessory Resp Muscle Use
Cardiac: S1/S2, Regular Rhythm and Tachycardia; No Murmur or Rub
GI: Soft, Non Distended, Normal Bowel Sounds and Tender (mild, diffuse ); No Organomegaly
Rectal: Deferred by Provider
Musculoskeletal: No Clubbing, No Cyanosis and No Edema
Skin: No Rash
Neuro: Awake and Alert
Psych: Calm and Intact Judgment/Insight
Laboratory Results
-
06/09/25 08:46
06/09/25 08:46
Laboratory Results
Total Bilirubin 0.4 mg/dl (0.2-1.3) 06/09/25 08:46
AST 58 U/L (14-36) H 06/09/25 08:46
ALT 171 U/L (0-35) H 06/09/25 08:46
Alkaline Phosphatase 63 U/L (38-126) 06/09/25 08:46
Lipase 172 U/L (23-300) 06/09/25 08:46
Data Reviewed
-
Lab Data: Labs Reviewed by me
Impression/Plan
-
HPI: 89-year-old female with history of migraines, A-fib, history of hiatal hernia, hypothyroidism, Sjogren syndrome, adrenal insufficiency; p/w abdominal discomfort and mild nausea.
She reported last bowel movement about 2 weeks ago. Her abdominal pain started with the constipation, and now also c/o nausea.
She denies to vomiting. She has chronic intermittent fever which she attributed to Sjogren's. She c/o bloating and dyspepsia.
A/P:
# Severe constipation
# Abd bloating and dyspepsia
CT AP: Noted large amount stool within the sigmoid and descending colon. Scattered colonic diverticulosis.
Curbsided GI Dr Woodard, recc aggressive bowel regimen prior to manual disimpaction.
Dulcolax x1, MoM enema, Senokot-S BID, Miralax daily
PPI IV daily, Zofran PRN, Maalox PRN
# hyponatremia and sinus tachycardia, possibly 2/2 dehydration
Sodium level 123 on admission, cont to monitor
s/p 1L NSS in ED, cont maintenance IVF NSS 100 cc/hr
Monitor HR
Check urine Sodium and Osm level
cont tele monitor for sinus tachycardia
# Transaminitis, possible reactive
monitor LFT
# Intermittent subjective fever
Check CRP
Check blood cultures
Other medical conditions:
# migraines
# Paroxysmal A-fib
# history of hiatal hernia
# hypothyroidism
# Sjogren syndrome
# adrenal insufficiency
DVT ppx: Lovenox SQ
FC
--- NOTE | 2025-06-09 11:57 | PHANOTE ---
06/09/25-patient will not give me information on naltrexone because she does not want to take it for a few days, no ecw or pharmacy records can be find. also patient lorazepam, patient stated she take 3 tablets (1.5mg) a day at night but pdmp show
04/23/25 #60 patient would ran out ealrier then expected. max dose 2 in a 24hr period as per prescription filled at [facility] on.
[2025-06-09 12:11] LABS: Troponin I 0.021 ng/ml
[2025-06-09] MEDS: DULCOLAX 10 MG RECTAL (12:16)
[2025-06-09] MEDS: SENOKOT-S 2 TABLET PO ×2 (12:21→23:12)
[2025-06-09] MEDS: MIRALAX 17 GRAMS PO (12:21)
--- NOTE | 2025-06-09 12:59 | EDRN ---
Patient FLOYD with ambulation and with rest at times, refusing to wear O2 and states that 'this is how I always am.' MOM enema given with partial relief.
[2025-06-09 13:41] LABS: C-Reactive Protein 16.30 mg/L (0.0-10.00)
[2025-06-09] MEDS: MAALOX 30 ML PO (14:06)
[2025-06-09] MEDS: TYLENOL 325 MG PO (14:07)
[2025-06-09] MEDS: FLUSH (NSS) 1 FLUSH IV (14:09)
[2025-06-09] MEDS: NSS (PRESERVATIVE FREE) 10 ML IV (14:59)
[2025-06-09] MEDS: PROTONIX IV 40 MG IV (14:59)
[2025-06-09] MEDS: SODIUM CHLORIDE 1 GRAM PO ×2 (16:14→22:03)
[2025-06-09] MEDS: VANCOCIN 530 MG IV (16:42)
--- NOTE | 2025-06-09 16:43 | PHA.VAN.IN ---
Assessment
- Assessment
Renal Function: Appears similar to baseline (02/21/25 BASELINE SCR: 1.0)
Concomitant Antimicrobials: ROCEPHIN
- Previous Dosing Experience
Previous Regimen: NONE
Plan
- Plan
Initial / Loading Dose: 1500MG
Maintenance Regimen: DOSING BY RANDOM LEVELS
Monitoring: RANDOM VANCOMYCIN LEVEL 06/10/25 AM
Pharmacokinetics Vancomycin I
- -
Patient Age: 89
Patient Sex: Female
Vancomycin Day #: 1
Indication: Other
Requesting Provider: KINGSTON
Height / Weight:
Height 5 ft 2 in
Actual Weight 55.423 kg
- Vital Signs / Lab Results
Temp Pulse Resp BP Pulse Ox
101 F H 92 18 98/49 98
06/09/25 16:12 06/09/25 16:12 06/09/25 16:12 06/09/25 16:12 06/09/25 16:12
Lab Results - Hematology
06/09/25
08:46
WBC 4.9
Lab Results - Chemistry
06/09/25
08:46
BUN 25 H
Creatinine 1.1 H
Estimated Creat Clear 28
Albumin 4.1
Lab Results - Urine
06/09/25
10:12
Urine Nitrite (Reflex) Negative
Leukocyte Esterase Rfl Negative
Urine WBC (Reflex) 3-5
Ur Squamous Epith Cells 11-15
Urine Bacteria (Reflex) Few A
[2025-06-09] MEDS: NSS 250 IV (16:45)
--- NOTE | 2025-06-09 17:30 | PTCARENOTE ---
Pt's temp 101.0, BP 98/48, HR 92 with 1500 vital sign assessment. Pt with abdominal discomfort, no dizziness. Made Dr. Bingham aware of vital signs. See new orders for ABX, IVF bolus. Updated pt on plan, will monitor.
[2025-06-09] MEDS: STERILE WATER FOR INJECTION 10 ML IV (18:22)
[2025-06-09] MEDS: ROCEPHIN 1000 MG IV (18:22)
[2025-06-09] MEDS: XARELTO 15 MG PO (18:23)
[2025-06-09] MEDS: SENOKOT-S PO (20:14)
[2025-06-10] MEDS: ATIVAN 0.5 MG PO (01:21)
[2025-06-10] MEDS: TYLENOL 325 MG PO (01:24)
[2025-06-10 03:33] VITALS: BP 125/60
[2025-06-10] MEDS: SYNTHROID 88 MCG PO (05:08)
[2025-06-10 07:35] VITALS: BP 118/73
[2025-06-10] MEDS: NSS 1000 IV (08:13)
[2025-06-10] MEDS: MIRALAX 17 GRAMS PO (08:14)
[2025-06-10] MEDS: SODIUM CHLORIDE 1 GRAM PO (08:15)
[2025-06-10] MEDS: SENOKOT-S 2 TABLET PO (08:15)
[2025-06-10] MEDS: TYLENOL 500 MG PO (08:16)
[2025-06-10] MEDS: PEPCID 20 MG PO (08:16)
[2025-06-10] MEDS: PROTONIX IV 40 MG IV (08:17)
[2025-06-10] MEDS: NSS (PRESERVATIVE FREE) 10 ML IV (08:18)
[2025-06-10] MEDS: TOPROL XL 25 MG PO (08:21)
[2025-06-10 08:26] LABS: ALT (SGPT) 144 U/L (0-35); AST (SGOT) 67 U/L (14-36); Albumin 3.2 g/dl (3.5-5.0); Alkaline Phosphatase 71 U/L (38-126); Blood Urea Nitrogen 18 mg/dl (7-17); Calcium 8.2 mg/dl (8.4-10.2); Carbon Dioxide 20 mmol/L (22-30); Chloride 101 mmol/L (98-107); Estimated Creatinine Clearance 28 ml/min; Glucose 94 mg/dl (70-99); Magnesium 1.3 mg/dl (1.6-2.3); Potassium 4.2 mmol/L (3.5-5.1); Sodium 125 mmol/L (135-145); Total Protein 5.3 g/dl (6.3-8.2); eGFR 48.33
[2025-06-10 08:35] LABS: Hematocrit 32.4 % (37.0-47.0); Hemoglobin 11.2 g/dL (12.0-16.0); Mean Corp Hgb Conc. 34.6 g/dL (33.0-37.0); Mean Corpuscular Volume 98.2 fL (81.0-99.0); Red Cell Dist. Width 12.9 % (11.5-14.5)
--- NOTE | 2025-06-10 09:10 | PHA.VAN.FU ---
Vancomycin Assessment / Plan
- Assessment
Renal Function: Stable (Scr slightly elevated from baseline (0.7-1))
WBC's are: Trending Down
Concomitant Antimicrobials: Ceftriaxone
- Assessment - Therapeutic Drug Monitoring
Random Level: 10.8 - drawn ~15 hours after loading dose of vancomycin 1500mg
- Dosing Plan
Dosing by Level: Re-dose today (Vancomycin 500mg x 1 dose)
- Monitoring Plan
No level(s) ordered at this time: Will f/u with renal function in AM to determine next dose.
- Follow Up
Pharmacy will continue to follow.
Vancomycin Follow UP
- -
Patient Age: 89
Patient Sex: Female
Vancomycin Day #: 2
Indication: Other
Requesting Provider: Dr. Bingham
Pertinent Antimicrobial Allergies:
no pertinent antibiotic allergies
Height / Weight:
Height 5 ft 2 in
Actual Weight 55.423 kg
Pertinent Past Medical History: BMI ~22
- Vital Signs / Lab Results
Temp Pulse Resp BP Pulse Ox
99.4 F 108 24 118/73 96
06/10/25 07:35 06/10/25 08:21 06/10/25 07:35 06/10/25 08:21 06/10/25 07:35
Lab Results - Hematology
06/09/25 06/10/25
08:46 07:25
WBC 4.9 3.3 L
Lab Results - Chemistry
06/09/25 06/10/25
08:46 07:25
BUN 25 H 18 H
Creatinine 1.1 H 1.1 H
Estimated Creat Clear 28 28
Albumin 4.1 3.2 L
Lab Results - Urine
06/09/25
10:12
Urine Nitrite (Reflex) Negative
Leukocyte Esterase Rfl Negative
Ur Squamous Epith Cells 11-15
Microbiology Results
06/09/25 20:33 Blood Parasites Smear - Preliminary
Blood/Venous
Therapeutic Drug Monitoring
Random Vancomycin 10.8 ug/ml 06/10/25 07:25
[2025-06-10] MEDS: VANCOCIN HCL 500 MG 100 IV (09:25)
--- NOTE | 2025-06-10 10:37 | W.PN.HOSP.TC ---
Addendum entered and electronically signed by Stephie Bingham MD 06/10/25 13:48:
total DC time 40 min
Original Note:
Today's Communication/Plan
-
see A/P
Assessment / Plan
Assessment / Plan
HPI: 89-year-old female with history of migraines, A-fib, history of hiatal hernia, hypothyroidism, Sjogren syndrome, adrenal insufficiency; p/w abdominal discomfort and mild nausea.
She reported last bowel movement about 2 weeks ago. Her abdominal pain started with the constipation, and now also c/o nausea.
She denies to vomiting. She has chronic intermittent fever which she attributed to Sjogren's. She c/o bloating and dyspepsia.
A/P:
# Severe constipation POA
# Abd bloating and dyspepsia
CT AP: Noted large amount stool within the sigmoid and descending colon. Scattered colonic diverticulosis.
Curbsided GI Dr Woodard, rec aggressive bowel regimen prior to manual disimpaction.
s/p Dulcolax x1, s/p MoM enema, cont Senokot-S BID, Miralax daily
PPI IV daily, Zofran PRN, Maalox PRN
Check Abd XR for stool burden
# Fever, unclear cause, possible underlying autoimmune disease
# Intermittent subjective fever [employer]
CRP 16.3, hence unlikely infectious cause
Follow blood cultures that were sent
Pt was started with empiric ceftriaxone/vancomycin, would DC with low suspicion of acute infectious cause
# hyponatremia and sinus tachycardia, possibly 2/2 dehydration
Sodium level 123 on admission -> 125 today , cont to monitor
s/p 1L NSS in ED, DC off maintenance IVF
Monitor HR- improved
urine Sodium and Osm level noted
# Transaminitis, possible reactive
monitor LFT outpt
# Hypomagnesemia
replete IV
Other medical conditions:
# migraines
# Paroxysmal A-fib
# history of hiatal hernia
# hypothyroidism
# Sjogren syndrome
# adrenal insufficiency
DVT ppx: [employer] Xarelto
FC
DW RN
Anticipated Discharge: Today
Subjective/Interval History
-
Date of Service: June 10, 2025
Objective Data
-
Labs:
Laboratory Results
06/10/25
07:25
WBC 3.3 L
Hgb 11.2 L
Hct 32.4 L
Plt Count Pending
Sodium 125 L
Potassium 4.2
Chloride 101
Carbon Dioxide 20 L
BUN 18 H
Creatinine 1.1 H
Glucose 94
Calcium 8.2 L D
Total Bilirubin 0.4
AST 67 H
ALT 144 H
Alkaline Phosphatase 71
Vital Signs:
Vital Signs
Temp Pulse Resp BP Pulse Ox
37.4 C 108 24 118/73 96
06/10/25 07:35 06/10/25 08:21 06/10/25 07:35 06/10/25 08:21 06/10/25 07:35
I&O
06/09/25 06/10/25 06/11/25
06:59 06:59 06:59
Intake Total 3200 / 3200
Output Total 550 / 550
Balance 2650 / 2650
Review of Systems
-
History Source: Patient
Constitutional: Reports No Symptoms
Abdomen/GI: Denies Abdominal Pain or Constipated
Physical Exam
-
General: Well Developed, Well Nourished, No Apparent Distress, Comfortable and Conversant
HEENT: Normocephalic, Atraumatic and Moist Mucous Membranes
Respiratory: Clear to Auscultation and Non Labored Respirations; Negative Accessory Resp Muscle Use
Cardiac: Regular Rhythm and S1/S2
GI: Soft, Nontender, Nondistended and Normal Bowel Sounds; Negative Organomegaly
Rectal: Deferred by Provider
Musculoskeletal: No Clubbing, No Cyanosis and No Edema
Skin: Negative Rash
Psych: Calm and Intact Judgement/Insight
Data Reviewed
-
CT Scan: Report Reviewed by me
Labs: Labs Reviewed by me (bmp )
[2025-06-10] MEDS: MAGNESIUM SULFATE 50 IV (11:03)
[2025-06-10 11:04] LABS: Platelet Count 116 10^3/uL (130-400)
[2025-06-10 11:07] VITALS: BP 118/60
--- NOTE | 2025-06-10 12:27 | CM ---
CM met with pt and her friends bedside
Pt resides alone in a 2SH with 2STE, full flight to 2nd floor
Pt is indep with her ADLs, denies use of DMEs, drives+
PCP- Mirtha Riley
Rx- [facility]
Pt ready for dc
VN order placed
Referral to [facility] per pt request
Friends will transport home
Discharge Disposition- home with [facility], friends will transport
--- NOTE | 2025-06-10 13:21 | W.DCSUMMARY ---
Discharge Summary
Discharge Data
Date of Admission: 06/09/25
Date of Discharge: 06/10/25
-
Pending Results: No
Hospital Course
Principal Diagnosis:
Severe constipation on admission without obstruction.
Hyponatremia and sinus tachycardia, possibly 2/2 dehydration
Fever, unclear cause, possibly due to underlying autoimmune disease
Chronic Diagnoses:�
Migraines
Paroxysmal A-fib
History of hiatal hernia
Hypothyroidism
Sjogren syndrome
Adrenal insufficiency
Consultations:�
None
Procedures:�
None
Clinical course:�
This is a 89-year-old female with past medical history as stated above, who presented with abdominal cramping and mild nausea. She stated that she has not had a bowel movement for about 2 weeks.
Problem 1:
Severe constipation without obstruction on admission.
Her CT AP noted large amount of stool within the sigmoid and descending colon, otherwise unrevealing.
She received aggressive bowel regimen to treat her constipation, which included Dulcolax suppository, MoM enema, Senokot-S BID, and Miralax, all of which helped with her constipation.
Her follow-up abdominal x-ray showed interval improvement in stool burden.
She can continue with Senokot-S twice daily following discharge to continue treatment of her constipation.
Problem 2:
Hyponatremia and sinus tachycardia, possibly due to dehydration.
She received IV fluid while in the hospital.
Her sodium level improved from 123 on admission to 125. She can continue with her prior to admission salt tab following discharge.
Her heart rate also improved following IV fluid.
Problem 3:
Fever, unclear cause, possibly due to underlying autoimmune disease.
The patient also endorsed to chronic intermittent fever at home.
Her CRP was noted to be relatively normal at 16.3, hence her fever was unlikely to be an infectious source.
Blood cultures and blood parasites were sent, and they were negative.
She did receive empiric antibiotics ceftriaxone/vancomycin temporarily, but these were not continued following discharge.
Of note, her LFT were noted to be elevated (AST 67, ALT 144). She can check repeat LFT outpatient with results with PCP.
As for the rest of her medical problems, they were stable during her hospital stay.
Discharge Plan
-
Patient Disposition: Home with Home Care
Discharge Diagnosis/Procedures: Severe constipation with abdominal cramp on admission- resolved
Condition: Fair
Diet: As tolerated
Activity: As tolerated
Driving Restrictions: As prior to admission
Blood Work: CMP in 1 week, result to PCP
Referrals:
Mirtha Riley MD [Family Provider, Internal Medicine] - in less than 1 week
Additional Discharge Medication Instructions: Continue Senokot-S twice daily for constipation
Prescriptions:
New
sennosides-docusate sodium 8.6-50 mg Tablet
2 tab PO BID Qty: 60 0RF
Continued
lorazepam 0.5 mg tablet
1 mg PO HSPRN PRN (Reason: anxiety)
Patient Comments:
06/09/25-patient stated she take 3 (1.5mg) a day at night but pdmp show 04/23/25 #60 patient would ran out ealrier then expected. max dose 2 in a 24hr period as per prescription filled at [facility]
calcium carbonate-vitamin D3 600 mg-10 mcg (400 unit) Capsule
1 cap PO BID
famotidine [Pepcid] 20 mg Tablet
20 mg PO DAILY
naltrexone
Patient Comments:
patirnt stated she takes low does but no ecw records or pharmacy, 06/09/25-patient will not give information on this cause she does not want to take it for a few days
levothyroxine [Synthroid] 88 mcg Tablet
88 mcg PO DAILY
sodium chloride 1 gram tablet
1,000 mg PO TID
cyanocobalamin (vitamin B-12) 1,000 mcg Tablet
1,000 mcg PO DAILY
acetaminophen 500 mg Tablet
500 mg PO DAILY
ascorbic acid (vitamin C) [Vitamin C] 500 mg Tablet
500 mg PO DAILY
prednisone 1 mg Tablet
9 mg PO DAILY
metoprolol succinate [Toprol XL] 25 mg Tablet Extended Release 24 Hr
25 mg PO DAILY
Xarelto 15 mg Tablet
15 mg PO QPM
vitamin K2 40 mcg Tablet
40 mcg PO DAILY
Discharge Orders:
Discharge Patient (As Directed); Ordered 06/10/25
Ordered By: Stephie Bingham
Discharge Date and Time
Print Language: SLOVENIAN
[2025-06-10] MEDS: ZOFRAN ODT (ORALLY DISINTEGRATING) 4 MG PO (14:00)
== END 2025-06-10 14:30 | disposition home health service (06) | DRG 641 ==
LOC: 4 EAST ACU 12:44
PROVIDERS: ADMITTING PHYSICIAN Internal Medicine; EMERGENCY PHYSICIAN Emergency Medicine; FAMILY PHYSICIAN Emergency Medicine
DX: E87.1 Hypo-osmolality and hyponatremia (principal); E27.40 Unspecified adrenocortical insufficiency; N25.81 Secondary hyperparathyroidism of renal origin; E86.0 Dehydration; K58.1 Irritable bowel syndrome with constipation; E03.9 Hypothyroidism, unspecified; G43.909 Migraine, unspecified, not intractable, without status migrainosus; I48.0 Paroxysmal atrial fibrillation; R74.01 Elevation of levels of liver transaminase levels; E83.42 Hypomagnesemia; M35.00 Sjogren syndrome, unspecified; K44.9 Diaphragmatic hernia without obstruction or gangrene; G47.00 Insomnia, unspecified; M81.0 Age-related osteoporosis without current pathological fracture; K80.20 Calculus of gallbladder without cholecystitis without obstruction; K57.30 Diverticulosis of large intestine without perforation or abscess without bleeding; Z60.2 Problems related to living alone; Z79.890 Hormone replacement therapy; Z79.01 Long term (current) use of anticoagulants; Z90.710 Acquired absence of both cervix and uterus; Z88.6 Allergy status to analgesic agent
CPT/HCPCS: 71045; 74018; 74022; 74177; 80048; 80053; 80076; 80202; 81003; 81015; 83690; 83735; 83880; 83935; 84300; 84443; 84484; 85025; 85027; 86140; 87015; 87040; 87207; 93005; 96361; 96374; 99285; Q9967

== ENCOUNTER → 2025-07-26 15:42 | Outpatient (REF) | payer OTHER, SELFPAY | LOC: RAD 15:42 | PROVIDERS: ATTENDING PHYSICIAN Internal Medicine; FAMILY PHYSICIAN Emergency Medicine | DX: C31.9 Malignant neoplasm of accessory sinus, unspecified (principal); J32.9 Chronic sinusitis, unspecified | CPT/HCPCS: 70487; Q9967 ==

== ENCOUNTER → 2025-10-05 21:15 | Outpatient (REF) | payer OTHER, SELFPAY | LOC: DHSLP 21:15 | PROVIDERS: ATTENDING PHYSICIAN Psychiatry & Neurology Neurology; FAMILY PHYSICIAN Family Medicine | DX: G47.33 Obstructive sleep apnea (adult) (pediatric) (principal); G47.00 Insomnia, unspecified; G47.52 REM sleep behavior disorder | CPT/HCPCS: 95810 ==